=== PATIENT | male | born 2000 | race Caucasian/White ===

== ENCOUNTER 2020-09-06 19:02 | Emergency (ER) | payer MEDICAID, OTHER ==
[~2020-09-06] VITALS: Ht 172.7 cm; Wt 66.6 kg
[2020-09-06 19:15] VITALS: BP 106/60
[2020-09-06] MEDS: proparacaine 0.5% ophthalmic drops 15ml LEFTEYE ONE (19:49)
[2020-09-06] MEDS: erythromycin ophthalmic ointment 1gm tube LEFTEYE ONE (21:15)
== END 2020-09-06 21:16 | disposition home or self-care (01) ==
LOC: ER 19:03
DX: T15.12XA Foreign body in conjunctival sac, left eye, initial encounter (principal); F12.90 Cannabis use, unspecified, uncomplicated; X58.XXXA Exposure to other specified factors, initial encounter; Y93.89 Activity, other specified; Y92.89 Other specified places as the place of occurrence of the external cause; Y99.8 Other external cause status; H57.12 Ocular pain, left eye
CPT/HCPCS: 65205; 99284